=== PATIENT | female | born 1985 | race Two or more races ===

== ENCOUNTER 2016-12-31 13:56 | Emergency (ER) | payer SELFPAY ==
[~2016-12-31] VITALS: Ht 160 cm; Wt 56.7 kg
[2016-12-31 13:59] VITALS: BP 120/80
[2016-12-31] MEDS ORDERED: Ketorolac 60mg Inj IM ONE (14:15)
[2016-12-31] MEDS ORDERED: IBUPROFEN600 MG ORAL (15:37)
[2016-12-31] MEDS ORDERED: CYCLOBENZAPRINE10 MG ORAL (15:37)
[2016-12-31 15:48] VITALS: BP_SYST 119; BP_SYST 120; BP_DIAS 78; BP_DIAS 80
--- NOTE | 2017-01-02 11:32 | Diagnostic Imaging Report ---
Indication: PAIN Technique: Spiral acquisitions obtained through the cervical spine. No IV contrast utilized. Multiplanar reconstructions were generated. Total dose length product 245 mGycm. CTDIvol(s) 11 mGy. Dose reduction achieved using automated exposure control Comparison: None Findings: No acute fractures. No dislocations. Bony alignment is normal. Disc spaces are preserved. Vertebral body heights are preserved. There is minimal degenerative remodeling of the C4 vertebral body, and minimal posterior osteophytes at C6-7. There is mild narrowing of the right C2-3 neural foramen due to facet arthropathy. No significant disc bulge or protrusion or spinal stenosis. At C6-7, there is mild left neural foraminal narrowing due to facet degeneration and posterior osteophytes. No significant disc bulge or protrusion or spinal stenosis. At the remaining levels, no significant disc bulge or protrusion, spinal stenosis, or neural foraminal narrowing. The included extraspinal soft tissues are unremarkable. Impression: No acute bony trauma Minimal degenerative changes as described This agrees with the preliminary interpretation provided overnight by Dr. Hernández The CT scanner at [facility] is accredited by the [employer] and the scans are performed using protocols designed to limit radiation exposure to as low as reasonably achievable to attain images of sufficient resolution adequate for diagnostic evaluation.
--- NOTE | 2017-01-02 11:32 | Diagnostic Imaging Report ---
Indication: PAIN Technique: 3 views of the left shoulder Comparison: None Findings: No acute fractures or dislocations. Joint spaces are preserved. Impression: Negative
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
== END 2016-12-31 16:02 | disposition home or self-care (01) ==
LOC: EDBD 13:56 → EMR 14:10
DX: S40.012A Contusion of left shoulder, initial encounter (principal); S16.1XXA Strain of muscle, fascia and tendon at neck level, initial encounter; V43.52XA Car driver injured in collision with other type car in traffic accident, initial encounter; Y92.410 Unspecified street and highway as the place of occurrence of the external cause
CPT/HCPCS: 72125; 81025; 96372; 99284